=== PATIENT | female | born 1940 | race Caucasian/White ===

== ENCOUNTER 2017-04-16 18:30 | Inpatient (IN) | payer MEDICARE ==
[~2017-04-16 18:30] MED LIST: ISOVUE-370 76%-LOCM 1 ML ONE
--- NOTE | 2017-04-16 21:10 | CT ---
CHEST CT ANGIOGRAM INCLUDING 3D RENDERIN04/16/17 HISTORY: 76-year-old female with chest pain and elevated D-dimer. Shortness of breath. There is very extensive bilateral chronic interstitial lung disease with bullous emphysema changes an d interstitial linear extensive reticulonodular parenchymal changes throughout both lungs. There is n o significant CT evidence for acute pulmonary embolism. There is some extensive mass and associated a denopathy within the mediastinum and right hilum with some resultant atelectasis of the right middle lobe. There is right pleural effusion. Abnormal lymph nodes up to 1.6 x 2.1 cm in the right sided upp er mediastinum. Right pretracheal lymph node measuring 2.4 x 2.5 cm. There is a mass of matted adenop athy in the anterior pretracheal region measuring 3.3 x 5.6 cm in confluence. Subcarinal adenopathy m easuring 3.7 x 4 cm with right hilar adenopathy measuring approximately 2.6 cm as well as some infrah ilar adenopathy and some right azygoesophageal adenopathy. This adenopathy does result in some fairly moderate narrowing of the right pulmonary artery including some of the upper lobe and middle lobe br anches of the pulmonary artery. Atherosclerotic ectatic changes of the aorta with some ectasia but no evidence of focal aneurysm or dissection. There is some heterogeneous nodular densities within the l iver, somewhat less than optimally characterized because of this early arterial phase but very worris ome for extensive liver metastasis. There is at least one enlarged lymph node in the gastrohepatic li gament region up to 1 x 1.8 cm. IMPRESSION: No significant CT evidence for acute pulmonary embolism. Very extensive mass/adenopathy involving the mediastinum and right hilum as above. This extensive adenopathy does result in fairly marked narrowi ng of multiple pulmonary artery branches on the right side. Right middle lobe parenchymal changes pro bably representing atelectasis secondary to obstructive changes of the right middle lobe bronchus. Ri ght pleural effusion. Extensive liver masses, evidence for extensive metastasis within the liver. Oth er findings as above. POS: [facility]
[2017-04-16] MEDS ORDERED: Ondansetron ODT 4 MG TAB PO PRN (22:36)
[2017-04-16] MEDS ORDERED: Ondansetron HCl/PF 4 MG/2 ML Vial IVP PRN (22:40)
[2017-04-16] MEDS ORDERED: Ondansetron ODT 4 MG TAB SL PRN (22:40)
[2017-04-16] MEDS ORDERED: cefTRIAXone\\ROCEPHIN 1 GM in Sodium Chloride 0.9% 100 ML IVPB SCH (22:45)
[2017-04-16] MEDS ORDERED: hydrALAZINE 20 MG/ML VIAL SLOW IVP PRN (22:46)
[2017-04-16] MEDS ORDERED: Labetalol HCl 100 MG/20 ML VIAL SLOW IVP PRN (22:46)
[2017-04-16] MEDS ORDERED: Vancomycin HCl 1 GM in Premix Bag 1 BAG IVPB SCH (23:00)
[2017-04-16 23:14] LABS: Troponin I 0.051 ng/mL (< 0.028)
[2017-04-16] MEDS ORDERED: Atorvastatin Calcium 20 MG TAB PO SCH (23:15)
[2017-04-16] MEDS ORDERED: Hydrochlorothiazide 25 MG TAB PO SCH (23:15)
[2017-04-16] MEDS ORDERED: Metoprolol Tartrate 5 MG/5 ML VIAL IVP SCH (23:15)
[2017-04-16] MEDS ORDERED: Acetaminophen 325 MG TAB PO PRN (23:21)
[2017-04-16] MEDS ORDERED: traMADol HCl 50 MG TAB PO SCH (23:30)
[2017-04-16] MEDS ORDERED: Piperacillin/Tazobactam 4.5 GM in Sodium Chloride 0.9% 100 ML IVPB SCH (23:59)
[2017-04-16] MEDS ORDERED: cefTRIAXone\\ROCEPHIN 1 GM, Syringe 0.4 ML in Sterile Water 9.6 ML SLOW IVP SCH (23:59)
[2017-04-17] MEDS: Levothyroxine Sodium 75 MCG TAB PO SCH (06:18)
[2017-04-17 06:36] LABS: ALT (SGPT) 128 U/L (8-55); AST (SGOT) 85 U/L (5-34); Albumin 3.4 g/dL (3.4-4.8); Alkaline Phosphatase 152 U/L (40-150); Anion Gap 13 mmol/L (10-20); BUN (Urea Nitrogen) 38 mg/dL (9.8-20.1); Calc. Creatinine Clearance 0 mL/min (70-130); Calcium 9.4 mg/dL (7.8-10.44); Carbon Dioxide 27 mmol/L (23-31); Chloride 88 mmol/L (98-107); Estimated GFR-MDRD 38; Globulin 3.4 g/dL (2.4-3.5); Glucose 110 mg/dL (83-110); Potassium 4.7 mmol/L (3.5-5.1); Protein, Total 6.8 g/dL (6.0-8.3); Sodium 123 mmol/L (136-145)
[2017-04-17 06:43] LABS: Band 9 % (5-11); Eosinophils 2 % (0-10); Hemoglobin 13.8 g/dL (12.0-16.0); Lymphocytes 20 % (21-51); MDiff Complete? YES; Mean Corpuscular HGB CONC 32.1 g/dL (32.0-36.0); Mean Corpuscular Hemoglobin 29.1 pg (27.0-31.0); Mean Corpuscular Volume 90.5 fl (81.0-99.0); Mean Platelet Volume 8.8 fL (7.4-10.4); Monocytes 3 % (0-10); Neutrophil 66 % (42-75); PLT Morphology Comment Appears Decreased; Platelet Count 92 thou/uL (130-400); RBC Distribution Width 13.7 % (11.5-14.5); Red Blood Cell (RBC) Count 4.73 mill/uL (4.20-5.40)
--- NOTE | 2017-04-17 07:33 | HP-2 ---
DATE OF ADMISSION: 04/16/2017 CODE STATUS: FULL. PRIMARY CARE PHYSICIAN: In [place] ATTENDING: Curtis Mars MD RESIDENT: Azeb Brice MD HISTORIAN: Self. CHIEF COMPLAINT: Shortness of breath and chest pain. HISTORY OF PRESENT ILLNESS: This is a 76-year-old female with past medical history of hypertension, hypothyroidism who presents as a transfer from [place] ED for shortness of breath and chest pain that started a few weeks ago. Patient reports shortness of breath is only really when she is exerting herself. It is not worse when she is lying down, but rest makes it better. The chest pains in the center of her chest to her back. Shortness of breath and chest pain had been getting progressively worse over the past couple of weeks. The patient denies any cough, any fever, chills, or weight loss. The patient reports that she has been gaining weight and has gained about 20 pounds over the past couple of months. The patient also reports some swelling in her legs yesterday that has gone down a little bit today. In the ER in [place], she was given Tylenol 1 gram, Zosyn 3.375 grams, Zofran 4 mg, aspirin 324 mg, Nitrostat 0.4 mg, Lopressor 5 mg. PAST MEDICAL HISTORY: Hypothyroidism, hypertension, hyperlipidemia. PAST SURGICAL HISTORY: None. ALLERGIES: No known drug allergies. MEDICATIONS: 1. Synthroid 75 mcg. 2. Aspirin 81 mg. 3. Aleve 220 mg p.r.n. 4. Simvastatin 40 mg at bedtime. 5. Hydrochlorothiazide 25 mg b.i.d. 6. Losartan 50 mg daily. FAMILY HISTORY: Mom had a myocardial infarction. SOCIAL HISTORY: Tobacco, smoked 1 pack per day for 50 years, quit 3 years ago. Denies alcohol or drug use. Lives in [place] with her son. REVIEW OF SYSTEMS: General: Denies fever, chills. Positive for weight gain. Positive for fatigue. ENT: Negative for rhinorrhea, sore throat. Respiratory: Negative for cough, positive for shortness of breath. Cardiovascular: Positive for chest pain, edema. Gastrointestinal: Negative for nausea, vomiting or abdominal pain. Genitourinary: Negative for dysuria, polyuria. Skin: Negative for rashes, lesions. Musculoskeletal: Negative for pain or tenderness. Neurologic: Negative for weakness, syncope. Psychiatric: Negative for anxiety, depression. PHYSICAL EXAMINATION: VITAL SIGNS: Blood pressure 167/88, pulse 77, respiratory rate 16, temperature 97.8, pulse ox 94% on room air, current weight 72.57 kilograms. GENERAL: Alert and oriented x3, no acute distress, well-nourished, appropriately interactive. EYES: PERRLA. Extraocular muscles intact. Conjunctivae within normal limits. ENT: Nasal mucosa and oropharynx within normal limits. Several missing teeth. NECK: Supple. No lymphadenopathy. CARDIOVASCULAR: Regular rate and rhythm. No murmurs, gallops, 2+ radial and pedal pulses. RESPIRATORY: Normal effort, no retractions. Rales at bilateral lung bases. SKIN: Warm, dry. No cyanosis or lesions. ABDOMEN: Distended, soft, nontender to palpation. Normoactive bowel sounds. Positive fluid wave. EXTREMITIES: No cyanosis, edema. MUSCULOSKELETAL: Structure, tone within normal limits, 5/5 muscle strength. Full range of motion. NEUROLOGICAL: No focal deficits. Sensation within normal limits. GCS 15. PSYCHIATRIC: Appropriate. LABORATORY DATA: WBC 21.2, hemoglobin 14.8, hematocrit 43.4, platelets 123. Sodium 127, potassium 4.5, chloride 89, CO2 of 25, BUN 41, creatinine 1.39, GFR 37, glucose 119, calcium 9.4, total protein 7.6, albumin 3.6, AST 100, ALT 152, alkaline phosphatase 171, total bilirubin 0.9. PT was 13.1, INR 1.0, PTT 25.7. D-dimer 5.59. Lactic acid 1.5. BNP 353.4. Troponin 0.063, 0.060. CK-MB 4.0. IMAGING: EKG normal sinus rhythm shortened WI interval. Chest x-ray showed increased linear and interstitial markings, possible bibasilar pneumonia, right paratracheal fullness, possibly representing adenopathy and biapical pleural thickening and scarring. CTA showed no acute pulmonary embolism, extensive mass /adenopathy involving mediastinum and right hilum, right middle lobe atelectasis , right pleural effusion, extensive liver masses. ASSESSMENT AND PLAN: This is a 76-year-old female who presents with: 1. Postobstructive pneumonia. The patient has elevated white blood cell count and shortness of breath and chest x-ray findings consistent with possible pneumonia, but no cough or fevers. This is more likely pleural effusion and atelectasis secondary to mass, but we will cover for pneumonia. Patient is status post 1 dose of Zosyn in the outside ED. We will start the patient on Rocephin. We will consider starting fluids, pending urine studies. We will get blood cultures. 2. Lung mass with possible liver metastasis. This is likely lung cancer with patient's [id number] smoking history. We will consult oncology in the a.m., concerned for ascites with fluid wave. We will consider abdominal CT, workup pending Onc recs and patient preference with home being in [place]. 3. Hypertensive urgency. We will restart home medications. Patient is status post Lopressor and Nitro. We will give p.r.n. labetalol for systolic blood pressure greater than 180. 4. Hyponatremia, concern for syndrome of inappropriate antidiuretic hormone could be paraneoplastic. We will check urine, sodium and urine osmolality. We will fluid restrict until urine studies come back. 5. Acute kidney injury. We will check urine creatinine and urine sodium, calculate FENa. Patient could be intravascularly depleted. 6. Indeterminate troponins, likely secondary to hypertensive urgency. These are downtrending. We will monitor. No ischemic changes on EKG. 7. Transaminitis, likely secondary to liver masses. We will consider abdominal CT. 8. Elevated BNP could be secondary to right heart strain with pulmonary artery occlusion from the mass, may benefit from an echo. 9. D-dimer elevation likely secondary to lung and liver masses, no pulmonary embolism on CTA. 10. Hypothyroidism. Continue home medications. 11. Hypertension. Continue home medications. 12. Hyperlipidemia. Hold simvastatin with transaminitis. 13. Venous thromboembolism prophylaxis, Lovenox. DISPOSITION: Admit to oncology. Symptomatic medications will be provided. History and physical exam as well as management discussed with Dr. Mars. LISA
--- NOTE | 2017-04-17 07:47 | PDOC.EVN ---
Attending Addendum - Attending Addendum I personally evaluated the patient and discussed the management with Dr. Brice. I agree with the History, Examination, Assessment and Plan documented in her H& P with any addition or exceptions noted below.
[2017-04-17] MEDS ORDERED: Hydrochlorothiazide 25 MG TAB PO SCH (09:00)
[2017-04-17 09:11] LABS: Creatinine, Urine 62.82 mg/dL (47-110)
[2017-04-17] MEDS: Aspirin 81 mg Enteric Coated Tablet PO SCH (10:01)
[2017-04-17] MEDS: Losartan Potassium 25 MG TAB PO SCH (10:01)
[2017-04-17] MEDS: Enoxaparin Sodium 40 MG/0.4 ML SYRINGE SC SCH (10:03)
[2017-04-17] MEDS ORDERED: Sodium Chloride 0.9% 1,000 ML IV SCH (11:00)
[2017-04-17] MEDS ORDERED: Amlodipine 5 MG TAB PO SCH (11:00)
--- NOTE | 2017-04-17 11:10 | PDOC.FM ---
- Subjective Subjective: Patient feeling okay this morning outside of being disappointed about current situation. Breathing easy, some minimal mid back pain. - Objective Vital Signs & Weight: Vital Signs (12 hours) Temp Pulse Resp BP BP Pulse Ox 04/17/17 07:45 97.2 F L 80 14 192/88 H 91 L 04/17/17 04:00 98.3 F 82 18 154/74 H 93 L 04/17/17 00:00 98.5 F 77 18 144/67 H 95 04/16/17 22:48 98.5 F 77 18 94 L Weight Weight 72.5 g Result Diagrams: 04/17/17 05:40 04/17/17 05:40 <Azeb Page - Last Filed: 04/17/17 11:28> - Objective Vital Signs & Weight: Vital Signs (12 hours) Temp Pulse Resp BP BP BP BP 04/17/17 11:50 71 149/67 H 04/17/17 11:35 98.3 F 71 14 149/67 H 04/17/17 07:45 97.2 F L 80 14 192/88 H 04/17/17 04:00 98.3 F 82 18 154/74 H Pulse Ox 04/17/17 11:50 04/17/17 11:35 91 L 04/17/17 07:45 91 L 04/17/17 04:00 93 L Weight Weight 72.5 g Result Diagrams: 04/17/17 05:40 04/17/17 05:40 <Curtis Mars - Last Filed: 04/17/17 12:11> Phys Exam - Physical Examination Constitutional: NAD HEENT: moist MMs Respiratory: no wheezing, no rales crackles RLL otherwise CTAB Cardiovascular: RRR, no significant murmur cap refill < 2 sec Gastrointestinal: soft, non-tender, no distention Musculoskeletal: no edema Neurological: non-focal, normal sensation, moves all 4 limbs Skin: normal turgor <Azeb Page - Last Filed: 04/17/17 11:28> Dx/Plan (1) Hyponatremia Code(s): E87.1 - HYPO-OSMOLALITY AND HYPONATREMIA Status: Acute Plan: Euvolemic with elevated urine osmolality and increased urine sodium c/w SIADH in light of clinical picture. Only indication for possibly fluid down is her questionable MICA. Will fluid restrict and recheck labs later today. If Na 125 or greater, she likely can go with strict instructions which have been provided for fluid restrictions. we have explained the urgency for her to have quick followup with her PCP next week to get in with oncology near [place]. (2) Lung mass Code(s): R91.8 - OTHER NONSPECIFIC ABNORMAL FINDING OF LUNG FIELD Status: Acute Plan: Newly diagnosed suspected lung cancer with liver mets. Patient is not from here and would like to get back to [place] as soon possible and complete her workup there. She is in agreement with not working up a cancer diagnosis and would like to be discharged. Hyponatremia, likely SIADH is the hold up, please see note on hypoNA. (3) Adenopathy, hilar Code(s): R59.0 - LOCALIZED ENLARGED LYMPH NODES Status: Acute (4) HTN (hypertension) Code(s): I10 - ESSENTIAL (PRIMARY) HYPERTENSION Status: Acute Plan: uncontrolled, will initiate amlodipine. (5) Transaminitis Code(s): R74.0 - NONSPEC ELEV OF LEVELS OF TRANSAMNS & LACTIC ACID DEHYDRGNSE Status: Acute Plan: likely 2/2 liver mets but patient to cont workup outpatient. (6) MICA (acute kidney injury) Code(s): N17.9 - ACUTE KIDNEY FAILURE, UNSPECIFIED Status: Suspected Plan: patient states she was told 5 months ago to increase her fluid intake, suspect she may be at her baseline kidney function however will check later today. (7) Thrombocytopenia Code(s): D69.6 - THROMBOCYTOPENIA, UNSPECIFIED Status: Acute <Azeb Page - Last Filed: 04/17/17 11:28> Attending Addendum - Attending Addendum I personally evaluated the patient and discussed the management with Dr. Page. I agree with the History, Examination, Assessment and Plan documented above with any addition or exceptions noted below. Patient admitted due to hyponatremia, possible post obstructive pneumonia, and likely new diagnosis of metastatic cancer. She desires to have treatment and workup of her likely malignancy in [place]. She would prefer to not remain in the hospital for further workup. The only thing keeping her in the hospital today is her sodium level. We will fluid restrict today and recheck labs this evening. If improved, consider discharge home today as no urgent indication other than sodium level to keep her in the hospital. <Curtis Mars - Last Filed: 04/17/17 12:11>
[2017-04-17] MEDS: Ondansetron ODT 4 MG TAB PO PRN (13:17)
[2017-04-17 16:12] LABS: Anion Gap 16 mmol/L (10-20); BUN (Urea Nitrogen) 36 mg/dL (9.8-20.1); Calc. Creatinine Clearance 0 mL/min (70-130); Calcium 9.2 mg/dL (7.8-10.44); Carbon Dioxide 24 mmol/L (23-31); Chloride 88 mmol/L (98-107); Estimated GFR-MDRD 42; Glucose 117 mg/dL (83-110); Potassium 4.3 mmol/L (3.5-5.1); Sodium 124 mmol/L (136-145)
[2017-04-17] MEDS ORDERED: Promethazine HCl 25 MG/ML VIAL IM/IV PRN (18:57)
[2017-04-17] MEDS ORDERED: Atorvastatin Calcium 20 MG TAB PO SCH (21:00)
[2017-04-18 04:53] LABS: ALT (SGPT) 118 U/L (8-55); AST (SGOT) 84 U/L (5-34); Albumin 3.3 g/dL (3.4-4.8); Alkaline Phosphatase 179 U/L (40-150); Anion Gap 15 mmol/L (10-20); BUN (Urea Nitrogen) 33 mg/dL (9.8-20.1); Bilirubin, Total 1.3 mg/dL (0.2-1.2); Calc. Creatinine Clearance 0 mL/min (70-130); Calcium 9.3 mg/dL (7.8-10.44); Carbon Dioxide 22 mmol/L (23-31); Chloride 86 mmol/L (98-107); Estimated GFR-MDRD 40; Globulin 3.4 g/dL (2.4-3.5); Glucose 116 mg/dL (83-110); Potassium 4.1 mmol/L (3.5-5.1); Protein, Total 6.7 g/dL (6.0-8.3)
[2017-04-18 04:56] LABS: Sodium 119 mmol/L (136-145)
[2017-04-18 06:07] LABS: Band 25 % (5-11); Hemoglobin 13.5 g/dL (12.0-16.0); Lymphocytes 13 % (21-51); MDiff Complete? YES; Mean Corpuscular HGB CONC 31.6 g/dL (32.0-36.0); Mean Corpuscular Hemoglobin 28.3 pg (27.0-31.0); Mean Corpuscular Volume 89.7 fl (81.0-99.0); Mean Platelet Volume 8.9 fL (7.4-10.4); Monocytes 8 % (0-10); Neutrophil 54 % (42-75); PLT Morphology Comment Appears Decreased; Platelet Count 89 thou/uL (130-400); RBC Distribution Width 13.9 % (11.5-14.5); RBC Morphology Normal; Red Blood Cell (RBC) Count 4.77 mill/uL (4.20-5.40)
[2017-04-18] MEDS: Levothyroxine Sodium 75 MCG TAB PO SCH (06:32)
--- NOTE | 2017-04-18 07:48 | PDOC.FM ---
- Subjective Subjective: The patient has no complaints this AM. She is resting comfortably in bed. She reports that she got thirsty last night so she drank a few glasses of water. She states that her back hurts, but she doesn't want to take any pain medicine, because it upsets her stomach. She has been up walking some. - Objective MAR Reviewed: Yes Vital Signs & Weight: Vital Signs (12 hours) Temp Pulse Resp BP BP Pulse Ox 04/18/17 00:00 98.0 F 84 16 136/62 93 L 04/17/17 20:00 97.8 F 82 18 142/65 H 92 L Weight Weight 72.5 g I&O: 04/17/17 04/18/17 04/19/17 06:59 06:59 06:59 Intake Total 400 Balance 400 Result Diagrams: 04/18/17 03:58 04/18/17 03:58 <Azeb Brice - Last Filed: 04/18/17 07:47> - Objective Vital Signs & Weight: Vital Signs (12 hours) Temp Pulse Resp BP Pulse Ox 04/18/17 08:00 97.5 F L 78 18 178/78 H 91 L 04/18/17 00:00 98.0 F 84 16 136/62 93 L Weight Weight 72.5 g I&O: 04/17/17 04/18/17 04/19/17 06:59 06:59 06:59 Intake Total 400 Balance 400 Result Diagrams: 04/18/17 03:58 04/18/17 03:58 <Curtis Mars - Last Filed: 04/18/17 10:21> Phys Exam - Physical Examination Constitutional: NAD HEENT: moist MMs rales in bilateral lung bases Cardiovascular: RRR, no significant murmur, no rub Gastrointestinal: soft, non-tender, no distention, positive bowel sounds Musculoskeletal: no edema, pulses present Neurological: non-focal, moves all 4 limbs Psychiatric: normal affect, A&O x 3 Skin: normal turgor, cap refill <2 seconds <Azeb Brice - Last Filed: 04/18/17 07:47> Dx/Plan (1) Hyponatremia Code(s): E87.1 - HYPO-OSMOLALITY AND HYPONATREMIA Status: Acute Plan: 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 The patient has been fluid restricted to < 1000mL/day, but she was still refilling her water cup overnight, because she got thirsty. Her sodium has worsened since yesterday from 124->119. -Start Demeclocycline -Recheck Na this afternoon -Strict fluid restriction (2) Lung mass Code(s): R91.8 - OTHER NONSPECIFIC ABNORMAL FINDING OF LUNG FIELD Status: Acute Plan: Patient has newly diagnosed lung mass with suspected liver mets with 50 pack year smoking history. She would like to finish work-up in [place]. (3) MICA (acute kidney injury) Code(s): N17.9 - ACUTE KIDNEY FAILURE, UNSPECIFIED Status: Suspected Plan: Patient's kidney function has been stable since admission, so this may be her baseline kidney function. -Will continue to monitor (4) Transaminitis Code(s): R74.0 - NONSPEC ELEV OF LEVELS OF TRANSAMNS & LACTIC ACID DEHYDRGNSE Status: Acute Plan: Likely 2/2 liver mets. Patient would like to complete work-up in [place]. (5) HTN (hypertension) Code(s): I10 - ESSENTIAL (PRIMARY) HYPERTENSION Status: Acute QualifierTitle: Hypertension type: essential hypertension Qualified Code( s): I10 - Essential (primary) hypertension Plan: Held HCTZ 2/2 hyponatremia. Will continue losartan (6) Hypothyroidism Code(s): E03.9 - HYPOTHYROIDISM, UNSPECIFIED Status: Acute QualifierTitle: Hypothyroidism type: unspecified Qualified Code(s): E03.9 - Hypothyroidism, unspecified Plan: On synthroid, continue home dose <Azeb Brice - Last Filed: 04/18/17 07:47> Attending Addendum - Attending Addendum I personally evaluated the patient and discussed the management with Dr. Brice. I agree with the History, Examination, Assessment and Plan documented above with any addition or exceptions noted below. Patient with worsening of sodium level overnight, currently at critical level. However, she was not appropriately fluid restriction. We provided education this morning, and will fluid restrict today. We will also ensure she is getting dietary sodium. Finally, Demeclocycline started this morning. Will check lab today and if improved, consider discharge. Patient declines to work up the lung mass or her other health problems until she is home in [place]. If we can get sodium level headed in right direction, consider discharge per her requests. <Curtis Mars R - Last Filed: 04/18/17 10:21>
[2017-04-18] MEDS: Aspirin 81 mg Enteric Coated Tablet PO SCH (08:34)
[2017-04-18] MEDS: Losartan Potassium 25 MG TAB PO SCH (08:34)
[2017-04-18] MEDS: Enoxaparin Sodium 40 MG/0.4 ML SYRINGE SC SCH (08:34)
[2017-04-18] MEDS ORDERED: Amlodipine 5 MG TAB PO SCH (09:00)
[2017-04-18] MEDS: traMADol HCl 50 MG TAB PO PRN (09:14)
[2017-04-18] MEDS: Ondansetron ODT 4 MG TAB PO PRN ×2 (09:17→14:09)
[2017-04-18] MEDS ORDERED: guaiFENesin ER 600 MG TAB PO SCH (10:15)
[2017-04-18] MEDS ORDERED: Oxymetazoline HCl 0.05% ( 15 ML ) NASAL SCH (10:30)
[2017-04-18] MEDS ORDERED: Ondansetron ODT 4 MG TAB PO PRN (14:09)
[2017-04-18 16:53] LABS: Anion Gap 17 mmol/L (10-20); BUN (Urea Nitrogen) 36 mg/dL (9.8-20.1); Calc. Creatinine Clearance 0 mL/min (70-130); Calcium 9.3 mg/dL (7.8-10.44); Carbon Dioxide 22 mmol/L (23-31); Chloride 85 mmol/L (98-107); Estimated GFR-MDRD 38; Glucose 114 mg/dL (83-110); Potassium 4.1 mmol/L (3.5-5.1); Sodium 120 mmol/L (136-145)
[2017-04-18] MEDS: Sodium Chloride 1 GM TAB PO SCH (20:12)
[2017-04-18] MEDS: guaiFENesin ER 600 MG TAB PO SCH (20:13)
[2017-04-19] MEDS: traMADol HCl 50 MG TAB PO PRN ×3 (00:09→16:47)
[2017-04-19 05:22] LABS: ALT (SGPT) 103 U/L (8-55); AST (SGOT) 71 U/L (5-34); Albumin 3.1 g/dL (3.4-4.8); Alkaline Phosphatase 188 U/L (40-150); Anion Gap 16 mmol/L (10-20); BUN (Urea Nitrogen) 39 mg/dL (9.8-20.1); Bilirubin, Total 0.8 mg/dL (0.2-1.2); Calc. Creatinine Clearance 0 mL/min (70-130); Calcium 9.5 mg/dL (7.8-10.44); Carbon Dioxide 21 mmol/L (23-31); Chloride 89 mmol/L (98-107); Estimated GFR-MDRD 37; Globulin 3.3 g/dL (2.4-3.5); Glucose 112 mg/dL (83-110); Potassium 4.2 mmol/L (3.5-5.1); Protein, Total 6.4 g/dL (6.0-8.3); Sodium 122 mmol/L (136-145)
[2017-04-19 05:57] LABS: Band 13 % (5-11); Hemoglobin 13.4 g/dL (12.0-16.0); Lymphocytes 15 % (21-51); MDiff Complete? YES; Mean Corpuscular HGB CONC 31.9 g/dL (32.0-36.0); Mean Corpuscular Hemoglobin 28.7 pg (27.0-31.0); Mean Corpuscular Volume 90.1 fl (81.0-99.0); Mean Platelet Volume 9.3 fL (7.4-10.4); Monocytes 7 % (0-10); Neutrophil 65 % (42-75); Platelet Count 85 thou/uL (130-400); RBC Distribution Width 13.7 % (11.5-14.5); Red Blood Cell (RBC) Count 4.68 mill/uL (4.20-5.40); White Blood Cell (WBC) Count 17.5 thou/uL (4.8-10.8)
[2017-04-19] MEDS ORDERED: Levothyroxine Sodium 50 MCG TAB PO SCH (06:00)
--- NOTE | 2017-04-19 08:32 | PDOC.FM ---
- Subjective Subjective: Patient doing well this AM. She is resting comfortably on 2L O2. She reports that her nausea has improved some and she was able to eat a little for dinner last night and she feels like she may be able to eat even more for breakfast. She has not had a BM since Tuesday, but reports that she doesn't feel constipated, she just thinks it's because she hasn't eaten much. - Objective MAR Reviewed: Yes Vital Signs & Weight: Vital Signs (12 hours) Temp Pulse Resp BP BP Pulse Ox 04/19/17 07:43 97.6 F 82 16 96 04/19/17 07:05 97.5 F L 83 16 130/62 96 04/19/17 04:00 97.6 F 82 16 132/69 96 04/19/17 03:09 97 04/19/17 00:10 18 97 04/19/17 00:00 97.8 F 88 18 133/65 69 L Weight Weight 72.5 g I&O: 04/18/17 04/19/17 04/20/17 06:59 06:59 06:59 Intake Total 400 680 Balance 400 680 Result Diagrams: 04/19/17 03:51 04/19/17 03:51 <Azeb Brice - Last Filed: 04/19/17 08:28> - Objective Vital Signs & Weight: Vital Signs (12 hours) Temp Pulse Resp BP BP Pulse Ox 04/19/17 07:43 97.6 F 82 16 96 04/19/17 07:05 97.5 F L 83 16 130/62 96 04/19/17 04:00 97.6 F 82 16 132/69 96 04/19/17 03:09 97 04/19/17 00:10 18 97 04/19/17 00:00 97.8 F 88 18 133/65 69 L Weight Weight 72.5 g I&O: 04/18/17 04/19/17 04/20/17 06:59 06:59 06:59 Intake Total 400 680 Balance 400 680 Result Diagrams: 04/19/17 03:51 04/19/17 03:51 <Curtis Mars - Last Filed: 04/19/17 10:53> Phys Exam - Physical Examination Constitutional: NAD HEENT: moist MMs Respiratory: no wheezing, no rhonchi rales on L side Cardiovascular: RRR, no significant murmur, no rub Gastrointestinal: soft, non-tender, positive bowel sounds distended Musculoskeletal: no edema, pulses present Neurological: non-focal, moves all 4 limbs Psychiatric: normal affect, A&O x 3 <Azeb Brice - Last Filed: 04/19/17 08:28> Dx/Plan (1) Hyponatremia Code(s): E87.1 - HYPO-OSMOLALITY AND HYPONATREMIA Status: Acute Plan: 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 The patient has been fluid restricted to < 1000mL/day Her sodium is slowly improving from 119->120->122 -Demeclocycline -Sodium Chloride tabs -Recheck Na this afternoon -Strict fluid restriction (2) Lung mass Code(s): R91.8 - OTHER NONSPECIFIC ABNORMAL FINDING OF LUNG FIELD Status: Acute Plan: Patient has newly diagnosed lung mass with suspected liver mets with 50 pack year smoking history. She would like to finish work-up in [place]. (3) MICA (acute kidney injury) Code(s): N17.9 - ACUTE KIDNEY FAILURE, UNSPECIFIED Status: Suspected Plan: Patient's kidney function has been stable since admission, so this may be her baseline kidney function. -Will continue to monitor (4) Transaminitis Code(s): R74.0 - NONSPEC ELEV OF LEVELS OF TRANSAMNS & LACTIC ACID DEHYDRGNSE Status: Acute Plan: Likely 2/2 liver mets. Patient would like to complete work-up in [place]. (5) HTN (hypertension) Code(s): I10 - ESSENTIAL (PRIMARY) HYPERTENSION Status: Acute QualifierTitle: Hypertension type: essential hypertension Qualified Code( s): I10 - Essential (primary) hypertension Plan: Held HCTZ 2/2 hyponatremia. Will continue losartan (6) Hypothyroidism Code(s): E03.9 - HYPOTHYROIDISM, UNSPECIFIED Status: Acute QualifierTitle: Hypothyroidism type: unspecified Qualified Code(s): E03.9 - Hypothyroidism, unspecified Plan: On synthroid. TSH was low, will decrease dose of synthroid. -F/u with PCP to have TSH rechecked in 4 weeks. <Azeb Brice - Last Filed: 04/19/17 08:28> Attending Addendum - Attending Addendum I personally evaluated the patient and discussed the management with Dr. Brice. I agree with the History, Examination, Assessment and Plan documented above with any addition or exceptions noted below. Patient doing well on room air this morning. Her de-sats last night were likely either inaccurate measurement due to how rapidly they responded, or a component of undiagnosed sleep apnea. She does not have a supplemental O2 requirement. Her sodium level is improved with fluid restriction, demeclocyine therapy, and adequate PO intake. She feels somewhat better today. Will recheck BMP this afternoon, and if sodium moving in right direction, will discharge home. Patient needs urgent evaluation in [place] as she does not want to initiate workup for her likely malignancy in [place]. Due to this, it is prudent that we discharge her once safe to do so so as not to waste time in obtaining initial evaluation. She has been counseled about the adverse effects of hyponatremia and /or delaying evaluation for her likely malignancy and she and family understand. <Curtis Mars - Last Filed: 04/19/17 10:53>
[2017-04-19] MEDS: Sodium Chloride 1 GM TAB PO SCH ×2 (09:28→16:44)
[2017-04-19] MEDS: Enoxaparin Sodium 40 MG/0.4 ML SYRINGE SC SCH (09:28)
[2017-04-19] MEDS: Losartan Potassium 25 MG TAB PO SCH (09:28)
[2017-04-19] MEDS: guaiFENesin ER 600 MG TAB PO SCH (09:28)
[2017-04-19] MEDS: Aspirin 81 mg Enteric Coated Tablet PO SCH (09:28)
[2017-04-19 14:17] LABS: Anion Gap 17 mmol/L (10-20); BUN (Urea Nitrogen) 44 mg/dL (9.8-20.1); Calc. Creatinine Clearance 0 mL/min (70-130); Calcium 9.7 mg/dL (7.8-10.44); Carbon Dioxide 23 mmol/L (23-31); Chloride 91 mmol/L (98-107); Estimated GFR-MDRD 33; Glucose 114 mg/dL (83-110); Sodium 127 mmol/L (136-145)
[2017-04-19 16:25] VITALS: BP 129/65; TEMP 97.7
--- NOTE | 2017-04-20 11:38 | DIS-2 ---
DATE OF ADMISSION: 04/16/2017 DATE OF DISCHARGE: 04/19/2017 ADMITTING RESIDENT: Dr. Azeb Brice DISCHARGE RESIDENT: Dr. Azeb Brice ADMITTING ATTENDING: Dr. Curtis Mars DISCHARGE ATTENDING: Dr. Curtis Mars CONSULTATIONS: None. PROCEDURES: None. IMAGIN. Chest x-ray showed increased linear and interstitial markings with some confluent changes in the bases. Possibilities include that of bibasilar pneumonia, possibly with some degree of underlying ch ronic interstitial disease. Asymmetric pulmonary edema could certainly have a similar appearance, al though the right base confluent certainly is more concerning for pneumonia. Right paratracheal fulln ess, possibly representing some adenopathy. Biapical pleural thickening and some scarring. 2. Chest thorax CTA showed no significant CT evidence for acute pulmonary embolism. Very extensive mass/adenopathy involving the mediastinum and right hilum. This resulted in fairly marked narrowing of multiple pulmonary artery branches on the right side. Right middle lobe parenchymal changes repre senting atelectasis secondary to obstructive changes of the right middle lobe bronchus. Right pleura l effusion. Extensive liver masses, evidence for extensive metastasis within the liver. PRIMARY DIAGNOSES: 1. Lung mass with adenopathy, likely malignant with metastasis. 2. Syndrome of inappropriate antidiuretic hormone. 3. Acute kidney injury. 4. Transaminitis. 5. Liver masses. SECONDARY DIAGNOSES: 1. Hypertension. 2. Hypothyroidism. DISCHARGE MEDICATIONS: 1. Aspirin 81 mg p.o. daily. 2. Demeclocycline 300 mg p.o. b.i.d. 3. Mucinex 1200 mg p.o. q.12h. 4. Levaquin 750 mg p.o. daily for 2 days. 5. Synthroid 50 mcg p.o. daily. 6. Losartan 50 mg p.o. daily. 7. Naproxen 220 mg 1 cap p.o. p.r.n. pain. 8. Zofran 4 mg p.o. q.4h. p.r.n. nausea. 9. Simvastatin 40 mg p.o. at bedtime. 10. Sodium chloride 1 gram p.o. daily. DISCONTINUED MEDICATIONS: Hydrochlorothiazide. HISTORY OF PRESENT ILLNESS AND HOSPITAL COURSE: This is a 76-year-old female who presented to the em ergency department with a history of worsened shortness of breath over the course of a couple of week s and was found to have what was thought to be pneumonia at the outside ER and was transferred [facility] of an elevated D-dimer to 5.59 for a CTA because that facility did not have the ability to perform a CTA and the CTA showed evidence of mass in the lung with liver masses and mediastinal adenopathy so there was concern for primary lung cancer with metastasis to the liver. The patient was informed of this and notified us that she had a 50+ year smoking history; however, had quit about 3 years ago. The patient is from [place] and was in town visiting her family for [place] and wished to have thi s mass worked up in [place] where she is from and did not desire to have this worked up at [facility]. However, there was concern for post-obstructive pneumonia, so the patient was treated with Leva thompson for that. However, her only significant abnormality that pointed to this was elevated white cou nt to 21.2. The patient was initially mildly hyponatremic to 127; however, the next morning, this gil d dropped significantly to 123. We did urine studies and they were consistent with a picture of synd shady of inappropriate antidiuretic hormone secretion which was likely secondary to the concern for ramya ng cancer. The patient was fluid restricted to 1 liter per day and this was monitored. She initiall y wanted to go home with her sodium at 123; however, we informed her that we wanted to see her sodium a little higher than this and prove that it would be increasing with the current therapy before we f elt comfortable sending her home. The next morning the patient's sodium was found to be 119. The pa marina had gotten thirsty overnight and had been drinking quite a bit and she also had been very nause ous and so she had not eaten much and so this was likely the cause of this. The patient was counsele d on the importance of fluid restriction and she was started demeclocycline and her sodium later that afternoon was 120. She was started at this time on sodium chloride tablets and the next morning her sodium was 122 and later that next afternoon it was found to be 127 and we felt comfortable discharg ing her at this level, knowing that the patient had an appointment with her primary care physician juan thakkar 2 days in [place] and that this level would be rechecked at that time. The patient initially came in with a creatinine of 1.39. She has no history of kidney disease; howev er, the creatinine remained around this level throughout her hospitalization showing that this was li esvin chronic. This was monitored and could be due to her hypertension versus some other cause. We e ncouraged her to follow up with her primary care physician regarding this. The patient had elevated liver enzymes with an AST of 100, ALT of 152 and alkaline phosphatase of 171 . Initially, this was likely secondary to the masses that were found in her liver and this will be w orked up in [place] when her lung mass is worked up. The patient had a TSH checked that was 0.3284 which is low and she is on Synthroid for hypothyroidism , so her dose of Synthroid was decreased and she was encouraged to inform her primary care physician of this and to follow up in 4 weeks for repeat TSH. We faxed the patient's records of [facility] to her primary care physician so that they would have a notification of our results that we fo und on her CT scan, so that she could have this worked up as quickly as possible and have good follow up with this. DISPOSITION: Stable. DISCHARGE INSTRUCTIONS: 1. Location: Home. 2. Diet: Regular. 3. Activity: As tolerated. 4. Follow up with her PCP within 2-3 days.
== END 2017-04-19 17:28 | disposition home or self-care (01) | DRG 180 ==
LOC: ERS 18:30 → ONC 22:22
PROVIDERS: ADMIT Student in an Organized Health Care Education/Training Program; ATTEND Student in an Organized Health Care Education/Training Program
DX: C34.01 Malignant neoplasm of right main bronchus (principal); J18.9 Pneumonia, unspecified organism; N17.9 Acute kidney failure, unspecified; E22.2 Syndrome of inappropriate secretion of antidiuretic hormone; C78.7 Secondary malignant neoplasm of liver and intrahepatic bile duct; D69.6 Thrombocytopenia, unspecified; J90 Pleural effusion, not elsewhere classified; J98.11 Atelectasis; E03.9 Hypothyroidism, unspecified; I10 Essential (primary) hypertension; E78.5 Hyperlipidemia, unspecified; Z79.82 Long term (current) use of aspirin; I16.0 Hypertensive urgency; R74.0 Nonspecific elevation of levels of transaminase and lactic acid dehydrogenase [LDH]; Z87.891 Personal history of nicotine dependence
CPT/HCPCS: 36415; 71275; 80053; 82533; 82570; 83930; 83935; 84300; 84443; 85025; 93005; A4216; J0360; J0696; J1650; Q0162